=== PATIENT | female | born 1995 | race Caucasian/White ===

== ENCOUNTER 2022-08-15 13:21 | Outpatient (CLI) | payer OTHER, SELFPAY ==
[2022-08-15 16:48] LABS: Albumin* 4.8 g/dL (3.3-5.0); Chloride* 108 mmol/L (96-114)
[2022-08-15 16:49] LABS: Potassium* 4.9 mmol/L (3.6-5.1); Sodium* 142 mmol/L (135-149)
[2022-08-15 16:51] LABS: Alkaline Phosphatase* 70 U/L (40-150); Aspartate Amino Transferase* 28 U/L (12-35); Bilirubin Total* 0.3 mg/dL (0.1-1.5); Blood Urea Nitrogen* 22 mg/dL (5-24); Carbon Dioxide* 27 mmol/L (20-32); Creatinine* 1.1 mg/dL (0.5-1.5); Estimated Glomerular Filt Rate 72 ml/min
[2022-08-15 16:52] LABS: Alanine Aminotransferase* 24 U/L (4-35); Calcium* 9.5 mg/dL (8.4-10.6); Glucose* 79 mg/dL (60-115)
== END 2022-08-15 13:22 | disposition home or self-care (01) ==
PROVIDERS: PCP Physician Assistant Medical; Visit Provider Physician Assistant Medical
DX: R61 Generalized hyperhidrosis (principal); F41.9 Anxiety disorder, unspecified
CPT/HCPCS: 80053; 84443

== ENCOUNTER 2022-12-06 16:15 | Outpatient (CLI) | payer OTHER, SELFPAY ==
[2022-12-06 23:03] LABS: Chlamydia DNA Amplified* NOT DETECTED (No Detected); GC DNA Amplified* NOT DETECTED (No Detected)
== END 2022-12-06 16:16 | disposition home or self-care (01) ==
PROVIDERS: PCP Physician Assistant Medical; Visit Provider Registered Nurse
DX: Z01.419 Encounter for gynecological examination (general) (routine) without abnormal findings (principal); Z11.3 Encounter for screening for infections with a predominantly sexual mode of transmission; Z13.6 Encounter for screening for cardiovascular disorders; Z13.21 Encounter for screening for nutritional disorder; F32.A Depression, unspecified; F41.9 Anxiety disorder, unspecified
CPT/HCPCS: 0353U; 80061; 82306; 87491; 87591

== ENCOUNTER 2023-07-11 14:08 | Outpatient (CLI) | payer OTHER, SELFPAY ==
[2023-07-11 22:42] LABS: Chlamydia DNA Amplified* NOT DETECTED (No Detected); GC DNA Amplified* NOT DETECTED (No Detected)
== END 2023-07-11 14:09 | disposition home or self-care (01) ==
PROVIDERS: PCP Physician Assistant Medical; Visit Provider Physician Assistant Medical
DX: Z11.3 Encounter for screening for infections with a predominantly sexual mode of transmission (principal)
CPT/HCPCS: 86592; 86703; 86706; 86803; 87340; 87491; 87591

== ENCOUNTER 2023-10-07 10:08 | Outpatient (CLI) | payer OTHER, SELFPAY ==
--- OUTSIDE RECORDS SUMMARY | 2023-10-07 10:11 | XMS_ITS | Clinical Summary ---
Author Name Unknown Organization [facility] Address [place], [place] [address] Care Team Providers Care High Voltage Electrician Name Role Phone Clinic, No Pcp Or Primary Care Provider Unavaila ble Allergies No known active allergies Medications Medication Sig Dispensed Refills Start Date End Date Status clindamycin 1% (CLEOCIN-T) 1 % gel APPLY TO FACE EVERY MORNING 0 03/12/2020 Active valACYclovir (VALTREX) 1 gram tablet 0 12/30/2020 Active cyclobenzaprine (FLEXERIL) 5 mg tabletIndications:Str ain of lumbar region, initial encounter Take 1 Tablet (5 mg) by mouth 3 times daily if needed for Muscle Spasm. 21 Tablet 0 08/30/2023 Active naproxen (NAPROSYN) 500 mg tabletIndications:Acu te right-sided low back pain without sciatica Take 1 Tablet (500 mg) by mouth every 12 hours if needed for Pain. 20 Tablet 0 09/05/2023 Active Active Problems Problem Noted Date Diagnosed Date CONSTIPATION 10/23/2000 FEVER 10/01/2000 Encounters Date Type Department Care Team Description 09/05/2023 3:40 PM LAUNCH STEWARD Office [facility] [address] [place] [address] Kamryn Cullen, Occ Med (08/29/23 low back- gotten better) 09/05/2023 Travel 08/30/2023 12:35 PM LAUNCH STEWARD Office Visit [facility] [address] [place] [address] Dorie Metzger, FORTINO Occ Med (Low back pain mostly on right side. With certain movements feels pulling on left side. Occurred 08/29/23 when lifting product at work. Employer [employer]) 08/30/2023 Travel from Last 3 Months Immunizations Name Administration Dates Next Due DTP 04/20/2003,1997,1997 ,1997 DTaP 04/20/2003,05/20/1998,1997 HIB HbOC (HibTITER) 1997,1997,1996 HIB PRP-OMP (PedvaxHIB) 1997,1997, Hepatitis A (Peds) 05/19/2014 Hepatitis B (Peds) 1997,1997, 997 Hepatitis B, Unspecified 1997,1997,1 Human Papilloma Virus Vaccine 10/16/2013, 013,04/28/2010 Inactivated Polio Vaccine 04/20/2003,1997, 1997 Influenza, IIV3 (Age 6-35 mos) 11/04/2006 MMR 01/28/2008,04/20/2003,05/20/1998 Meningococcal Vaccine (Menactra) 05/04/2011 Oral Polio Vaccine 1997,1997, 997 Tdap 09/04/2019,04/28/2010 Varicella Vaccine 04/28/2010,01/28/2008,11/16/18 99 Family History Medical History Relation Name Comments Genetic Other Healthy Relation Name Status Comments Other Social History Tobacco Use Types Packs/Day Years Used Date Smoking Tobacco: Former Cigarettes Smokeless Tobacco: Never Tobacco Cessation:Counseling Given: Not Answered PHQ-2 Answer Date Recorded PHQ-2 TOTAL SCORE 1 01/30/2021 Social Connections Answer Date Recorded Frequency of Communication with Friends and Fami ly Not on file 09/05/2023 Financial Resource Strain Answer Date R ecorded Difficulty of Paying Living Expenses Not on file 08/26/2021 Difficulty of Paying Living Expenses Not on file 08/26/2021 Sex and Gender Information Value Date Recorded Sex Assigned at Not on file Gender Identity Not on file Sexual Orientation Not on file Obstetrics History Last Filed Vital Signs Vital Sign Reading Time Taken Comments Blood Pressure 110/75 09/05/2023 3:53 PM LAUNCH STEWARD Pulse 77 09/05/2023 3:53 PM LAUNCH STEWARD Temperature 36.7 ??C (98.1 ??F) 08/30/2023 1:32 PM CS T Respiratory Rate 14 08/30/2023 1:32 PM LAUNCH STEWARD Oxygen Saturation 100% 09/05/2023 3:53 PM LAUNCH STEWARD Inhaled Oxygen Concentration - - Weight 68.5 kg (151 lb) 09/05/2023 3:53 PM LAUNCH STEWARD Height 170.2 cm (5' 7) 04/26/2021 2:05 PM CDT Body Mass Index 23.65 04/26/2021 2:05 PM CDT Plan of Treatment Health Maintenance Due Date Last Done Comments HIV for age 15-65 2012 Hepatitis C screening for ag e 18-79 2015 Depression screening for age 12+ 01/30/2022 01/30/2021 BMI (ht and wt on same day) for age 18+ 04/26/2022 04/26/2021, 01/30/2021, 02/03/2019 COVID-19 vaccine series (2022- season) 2023 10/18/2021, 09/27/2021 Influenza for age 9-49 04/26/2023 Pap test for age 21-65 12/09/2023 , 12/09/2018, 12/09/2018 Tetanus booster 09/04/2029 09/04/2019, 04/28/2010 HPV series for age 9-26 Completed 10/16/19 14, 03/06/2013, 04/28/2010 Tdap Completed 09/04/2019, 04/28/2010 Pneumococcal series for age 6-64 Aged Out No longer eligible b ased on patient's age to complete this topic Care Teams High Voltage Electrician Relationship Specialty Start Date End Date Clinic, No Pcp Or . PCP - General 09/04/19
--- OUTSIDE RECORDS SUMMARY | 2023-10-07 10:11 | XMS_ITS | Clinical Summary ---
Author Name Unknown Organization [facility] Address [address] [place] [address] Care Team Providers Care Medicinal Plant Picker Name Role Phone Blanca Hendricks MD Primary Care Provider [phone] Source Comments You are receiving this document as you are listed as the primary care provider,follow-up provider, or the patient has been referred to you for consultation.This is in compliance with the Medicare and[facility] EHR Incentive Program,which states Providers who transition their patient to another setting of careor provider of care or refers their patient to another provider of care shouldprovide summary care record for each transition of care or referral. [facility] Allergies No known active allergies Medications Medication Sig Dispensed Refills Start Date End Date Status buPROPion (WELLBUTRIN) 100 MG tablet Take 100 mg by mouth two times a day. 0 Active cyclobenzaprine (FLEXERIL) 10 MG tablet Take 1 Tab by mouth two times daily as needed for Muscle Spasms. 20 Tab 0 07/22/2017 Active Active Problems No known active problems Immunizations Name Administration Dates Next Due DTP 04/20/2003,1997,1997 ,1997 Flu Vac Preserv Free (3+yrs) 11/04/2006 HepB Ped/Adol (0-18 yrs) 1997,1997,1 Hib (HbOC) 1997,1997,1997 IPV (Polio) 04/20/2003 MMR 01/28/2008,04/20/2003 OPV, Trivalent (Orimune or tOPV) 1997,08/27,1997 Varicella 01/28/2008 Family History Medical History Relation Name Comments Hyperlipidemia Maternal Grandfather Depression Maternal Grandmother Thyroid Disorder Maternal Grandmother Depression Paternal Grandmother Thyroid Disorder Paternal Grandmother Relation Name Status Comments Maternal Grandfather Maternal Grandmother Paternal Grandmother Social History Tobacco Use Types Packs/Day Years Used Date Smoking Tobacco: Every Day Cigarettes Smokeless Tobacco: Never Comments:grandfather smokes, outside Alcohol Use Standard Drinks/Week Comments Not Asked 0 (1 standard drink = 0.6 oz pur e alcohol) Sex and Gender Information Value Date Recorded Sex Assigned at Not on file Gender Identity Not on file Sexual Orientation Not on file Last Filed Vital Signs Vital Sign Reading Time Taken Comments Blood Pressure 115/69 07/22/2017 11:37 AM POTATO SEED CUTTER Pulse 92 07/22/2017 11:37 AM POTATO SEED CUTTER Temperature 37 ??C (98.6 ??F) 07/22/2017 11:37 AM POTATO SEED CUTTER Respiratory Rate 20 07/22/2017 11:37 AM POTATO SEED CUTTER Oxygen Saturation 97% 11/09/2010 9:44 PM CDT Inhaled Oxygen Concentration - - Weight 71.7 kg (158 lb) 11/09/2010 9:44 PM CDT Height 157.5 cm (5' 2) 01/28/2008 9:38 AM CDT Body Mass Index - - Plan of Treatment Health Maintenance Due Date Last Done Comments Cervical Cancer Screening Due 1997 Hep C Screening (Preventive Services) 1997 COVID-19 Vaccine (#1) 1997 Varicella (2 of 2 - 2-dose childhood series) 04/21/2008 01/28/2008 DTaP/Tdap/Td (5 - Tdap) 2008 04/20/20 03, 1997, 1997, Additional history exists HPV Vaccine (1 - 2-dose series) 2008 HIV Screening (Preventive Services) 2013 Adult Preventive Visit 2015 8, 11/04/2006, 06/11/2005 Influenza (#1) 2023 11/04/2006 Zoster/Shingles (1 of 2) 2047 HepB Completed 1997, 06/27, 1997 Hib Aged Out 1997, 08/27, 1997 No longer eligible based on patient's age to complete this topic IPV (Polio) Completed 04/20/2003, 10/25, 1997, Additional history exists HepA Aged Out No longer eligi ble based on patient's age to complete this topic MCV4 Aged Out No longer eligi ble based on patient's age to complete this topic Pneumococcal Aged Out No longer eligi ble based on patient's age to complete this topic Care Teams Medicinal Plant Picker Relationship Specialty Start [place] [address] [place], [place] [phone] PCP - General 02/22/06
--- OUTSIDE RECORDS SUMMARY | 2023-10-07 10:11 | XMS_ITS | Clinical Summary ---
Author Name Unknown Organization [place] [facility] Address [address] [place] [address] Care Team Providers Care Store Assistant Name Role Phone Clinic, Araceli Huang Primary Care Provider Allergies No known active allergies Medications Medication Sig Dispensed Refills Start Date End Date Status doxycycline monohydrate (MONODOX) 100 MG capsuleIndications:A cne vulgaris Take one by mouth in the am and one by mouth in the pm for 3 months 180 capsule 0 09/26/2018 Active amoxicillin (AMOXIL) 500 MG capsuleIndications:A cne vulgaris TAKE ONE CAPSULE BID PO 60 capsule 2 10/15/2018 Active Social History Tobacco Use Types Packs/Day Years Used Date Smoking Tobacco: Never Smokeless Tobacco: Never Sex and Gender Information Value Date Recorded Sex Assigned at Not on file Gender Identity Not on file Sexual Orientation Not on file Last Filed Vital Signs Vital Sign Reading Time Taken Comments Blood Pressure 118/68 08/19/2011 5:29 AM ANIMAL SCIENCE INSTRUCTOR Pulse - - Temperature 36.7 ??C (98 ??F) 08/19/2011 1:53 AM ANIMAL SCIENCE INSTRUCTOR Respiratory Rate 20 08/19/2011 5:29 AM ANIMAL SCIENCE INSTRUCTOR Oxygen Saturation 99% 08/19/2011 5:29 AM ANIMAL SCIENCE INSTRUCTOR Inhaled Oxygen Concentration - - Weight 71.9 kg (158 lb 8.2 oz) 08/19/2011 1:53 A M ANIMAL SCIENCE INSTRUCTOR Height - - Body Mass Index - - Plan of Treatment Not on file Care Teams Store Assistant Relationship Specialty Start Date End Date Clinic, [facility] [address] [place] [address] PCP - General 08/19/11
--- OUTSIDE RECORDS SUMMARY | 2023-10-07 10:11 | XMS_ITS | Referral Summary ---
Author Name Unknown Organization [facility] Address [address] [place] [address] Care Team Providers Care Lead Esthetician Name Role Phone Clinic, Araceli Huang Primary [...] Comments Blood Pressure 118/68 08/19/2011 5:29 AM BANK ADVISOR Pulse - - Temperature 36.7 ??C (98 ??F) 08/19/2011 1:53 AM BANK ADVISOR Respiratory Rate 20 08/19/2011 5:29 AM BANK ADVISOR Oxygen Saturation 99% 08/19/2011 5:29 AM BANK ADVISOR Inhaled Oxygen Concentration - - Weight 71.9 kg (158 lb 8.2 oz) 08/19/2011 1:53 A M BANK ADVISOR Height - - Body Mass Index - - Plan of Treatment Not on file Care Teams Lead Esthetician Relationship Specialty Start Date End Date Clinic, [facility] [address] [place] [address] PCP - General 08/19/11
== END 2023-10-07 10:09 | disposition home or self-care (01) ==
PROVIDERS: PCP Family Medicine; Visit Provider Family Medicine
DX: Z00.00 Encounter for general adult medical examination without abnormal findings (principal); R53.83 Other fatigue
CPT/HCPCS: 80048; 84443; 85025

== ENCOUNTER 2023-12-27 11:00 | Outpatient (CLI) | payer OTHER, SELFPAY ==
--- OUTSIDE RECORDS SUMMARY | 2023-12-27 11:03 | XMS_ITS | Referral Summary ---
Author Name Unknown Organization [facility] [place] Address [address] [place] [address] Care Team Providers Care Lamp Replacer Name Role Phone Clinic, Araceli Huang Primary Care Provider Allergies No known active allergies Medications Medication Sig Dispensed Refills Start Date End Date Status doxycycline monohydrate (MONODOX) 100 MG capsuleIndications:A cne vulgaris Take one by mouth in the am and one by mouth in the pm for 3 months 180 capsule 09/26/2018 Active amoxicillin (AMOXIL) 500 MG capsuleIndications:A [...] Comments Blood Pressure 118/68 08/19/2011 5:29 AM SYSTEM SUPPORT ADMINISTRATOR Pulse - - Temperature 36.7 ??C (98 ??F) 08/19/2011 1:53 AM SYSTEM SUPPORT ADMINISTRATOR Respiratory Rate 20 08/19/2011 5:29 AM SYSTEM SUPPORT ADMINISTRATOR Oxygen Saturation 99% 08/19/2011 5:29 AM SYSTEM SUPPORT ADMINISTRATOR Inhaled Oxygen Concentration - - Weight 71.9 kg (158 lb 8.2 oz) 08/19/2011 1:53 A M SYSTEM SUPPORT ADMINISTRATOR Height - - Body Mass Index - - Plan of Treatment Not on file Care Teams Lamp Replacer Relationship Specialty Start Date End Date Clinic, [facility] [address] [place] [address] PCP - General 08/19/11
--- OUTSIDE RECORDS SUMMARY | 2023-12-27 11:03 | XMS_ITS | Clinical Summary ---
Author Name Unknown Organization [facility] Address [address] [place] [address] Care Team Providers Care Deployment Manager Name Role Phone Clinic, Araceli Huang Primary [...] Comments Blood Pressure 118/68 08/19/2011 5:29 AM PORTFOLIO ARCHITECT Pulse - - Temperature 36.7 ??C (98 ??F) 08/19/2011 1:53 AM PORTFOLIO ARCHITECT Respiratory Rate 20 08/19/2011 5:29 AM PORTFOLIO ARCHITECT Oxygen Saturation 99% 08/19/2011 5:29 AM PORTFOLIO ARCHITECT Inhaled Oxygen Concentration - - Weight 71.9 kg (158 lb 8.2 oz) 08/19/2011 1:53 A M PORTFOLIO ARCHITECT Height - - Body Mass Index - - Plan of Treatment Not on file Care Teams Deployment Manager Relationship Specialty Start Date End Date Clinic, [facility] [address] [place] [address] PCP - General 08/19/11
--- OUTSIDE RECORDS SUMMARY | 2023-12-27 11:03 | XMS_ITS | Clinical Summary ---
Author Name Unknown Organization [employer] [facility] Address [place], [place] [address] Care Team Providers Care Nuclear Technologist Name Role Phone Clinic, No Pcp Or Primary Care Provider Unavaila ble Allergies No known active allergies Medications Medication Sig Dispensed Refills Start Date End Date Status clindamycin 1% (CLEOCIN-T) 1 % gel APPLY TO FACE EVERY MORNING 03/12/2020 Active valACYclovir (VALTREX) 1 gram tablet 12/30/2020 Active cyclobenzaprine (FLEXERIL) 5 mg tabletIndications:Str ain of lumbar region, initial encounter Take 1 Tablet (5 mg) by mouth 3 times daily if needed for Muscle Spasm. 21 Tablet 08/30/2023 Active naproxen (NAPROSYN) 500 mg tabletIndications:Acu te right-sided low back pain without sciatica Take 1 Tablet (500 mg) by mouth every 12 hours if needed for Pain. 20 Tablet 09/05/2023 Active Active Problems Problem Noted Date Diagnosed Date CONSTIPATION 10/23/2000 FEVER 10/01/2000 Encounters Date Type Department Care Team Description 10/07/2023 Lab Requisition [facility] [phone] Sravan Alicia MD from Last 3 Months Immunizations Name Administration [...] Comments Blood Pressure 110/75 09/05/2023 3:53 PM YARN WASHER Pulse 77 09/05/2023 3:53 PM YARN WASHER Temperature 36.7 ??C (98.1 ??F) 08/30/2023 1:32 PM CS T Respiratory Rate 14 08/30/2023 1:32 PM YARN WASHER Oxygen Saturation 100% 09/05/2023 3:53 PM YARN WASHER Inhaled Oxygen Concentration - - Weight 68.5 kg (151 lb) 09/05/2023 3:53 PM YARN WASHER Height 170.2 cm (5' 7) 04/26/2021 2:05 PM CDT Body Mass Index 23.65 04/26/2021 2:05 PM CDT Plan of Treatment Health Maintenance Due Date Last Done Comments HIV for age 15-65 2012 Hepatitis C screening for age 18-79 2015 Depression screening for age 12+ 01/30/2022 01/30/2021 BMI (ht and wt on same day) for age 18+ 04/26/2022 04/26/2021, 01/30/2021, 02/03/2019 COVID-19 vaccine series (2022-24 season) 2023 10/18/2021, 09/27/2021 Influenza for age 9-49 04/26/2024 Pap test for age 21-65 10/07/2026 , 10/07/2023, 12/08/2020, Additional history exists Tetanus booster 09/04/2029 09/04/2019, 04/28/2010 HPV series for age 9-26 Completed 10/16/19 14, 03/06/2013, 04/28/2010 Tdap Completed 09/04/2019, 04/28/2010 Pneumococcal series for age 6-64 Aged Out No longer eligible based on patient's age to complete this topic Procedures Procedure Name Priority Date/Time Associated Diagnosis Comments LAB TRACKING EVENT Routine 10/07/2023 10 :15 AM YARN WASHER FLOWER STRIPPER THIN PREP PAP SCREEN IMAGED Routine 10/07/2023 10:15 AM YARN WASHER HPV THIN PREP Routine 10/07/2023 10:15 AM YARN WASHER from Last 3 Months Results * LAB TRACKING EVENT (10/07/2023 10:15 AM YARN WASHER) Other (Other) Client Collect / Unknown 10/07/2023 10:15 AM YARN WASHER 10/07/2023 10:12 PM YARN WASHER Sravan Alicia MD LAB BILL ONLY [facility] [address] [place] [address], * FLOWER STRIPPER THIN PREP PAP SCREEN IMAGED (10/07/2023 10:15 AM YARN WASHER) Case Report Gynecologic Cytology Report ? Case: [id number] ? Authorizing Provider: ??Sravan Alicia MD ??Collected: ? 10/07/2023 1015 ? Ordering Location: ? [facility] ?Received: ?10/08/2023 0846 ? First Screen: ?Candido Mena ? Specimen: ?FLOWER STRIPPER ThinPrep Vial Screening, Cervical ? 10/10/2023 6:19 PM [facility] INTERPRETATION/ RESULT NEGATIVE FOR INTRAEPITHELIAL LESION OR MALIGNANCY (NIL) (none) 10/10/2023 6:19 PM YARN WASHER [facility] IMEN ADEQUACY Satisfactory for evaluation Endocervical component present 10/10/2023 6:19 PM YARN WASHER [facility] HPV REQUEST HPV and PAP 10/10/2023 6:19 PM YARN WASHER [facility] Date of LMP 10/10/2023 6:19 PM YARN WASHER [facility] Comment:Depo Provera Last Pap Date 10/10/2023 6:19 PM YARN WASHER [facility] LABORATORY-C ENTRAL LABORATORY Comment:November 2020 Last Pap Result NIL 6:[address] [facility] [place] Bx Done Today No 10/10/2023 6:[address] [facility] Additional Information 10/10/2023 6:[address] [facility] Comment: Interpreted at [facility] - [address] [place] [address], [place] [address] Automated Review Successful 10/10/2023 6:19 PM [facility] Comment:Specimen processed s uccessfully by automated automotive instructor device, ThinPrep Imaging System, [employer] ANCILLARY TESTING FLOWER STRIPPER HPV Ordered, Please see separate report 10/10/2023 6:19 PM YARN WASHER [facility] Note The pap test is a screening technique, not a diagnostic procedure. It is used primarily to screen for squamous cancers and precursor lesions. Published studies have shown that it is subject to both false negative and false positive results. The pap test should not be used as the sole means to diagnose or exclude pre-malignant and malignant lesions. 10/10/2023 6:[address] [facility] Other (Cervical) 10/07/2023 10:15 AM YARN WASHER 10/08/2023 8:46 AM YARN WASHER Sravan Alicia MD PATHOLOGY/CYTOLO [facility] [address] [place] [address], * HPV HIGH RISK (10/07/2023 10:15 AM YARN WASHER) TYPE 16 Negative Negative 10/09/2023 2:25 PM YARN WASHER [facility] TRAL LABORATORY TYPE 18 Negative Negative 10/09/2023 2:25 PM YARN WASHER [facility] TRAL LABORATORY OTHER HIGH RISK TYPES Negative Negative 10/09/2023 2:25 PM YARN WASHER [facility] TRAL LABORATORY Other (Cervical) 10/07/2023 10:15 AM YARN WASHER 10/08/2023 8:46 AM YARN WASHER Narrative [facility] - 10/09/2023 2:25 PM YARN WASHER HPV types 16, 18, 31, 33, 35, 39, 45, 51, 52, 56, 58, 59, 66 and 68 DNA were undetectable or below the pre-set threshold. Methodology: [employer] 4800 HPV Test Sravan Alicia MD MICROBIOLOGY [facility] [address] [place] [address], from Last 3 Months Care Teams Nuclear Technologist Relationship Specialty Start Date End Date Clinic, No Pcp Or . PCP - General 09/04/19
--- OUTSIDE RECORDS SUMMARY | 2023-12-27 11:03 | XMS_ITS | Clinical Summary ---
Author Name Unknown Organization [facility] Address [address] [place] [address] Care Team Providers Care Solder Sprayer Name Role Phone Blanca Hendricks MD Primary Care Provider [phone] Source Comments You are receiving this document as you are listed as the primary care provider,follow-up provider, or the patient has been referred to you for consultation.This is in compliance with the Medicare and[facility] EHR Incentive Program,which states Providers who transition their patient to another setting of careor provider of care or refers their patient to another provider of care shouldprovide summary care record for each transition of care or referral. [facility] Allergies No known active allergies Medications Medication Sig Dispensed Refills Start Date End Date Status buPROPion (WELLBUTRIN) 100 MG tablet Take 100 mg by mouth two times a day. Active cyclobenzaprine (FLEXERIL) 10 MG tablet Take 1 Tab by mouth two times daily as needed for Muscle Spasms. 20 Tab 07/22/2017 Active Active Problems No known active [...] Comments Blood Pressure 115/69 07/22/2017 11:37 AM PAEDODONTIST Pulse 92 07/22/2017 11:37 AM PAEDODONTIST Temperature 37 ??C (98.6 ??F) 07/22/2017 11:37 AM PAEDODONTIST Respiratory Rate 20 07/22/2017 11:37 AM PAEDODONTIST Oxygen Saturation 97% 11/09/2010 9:44 PM CDT Inhaled Oxygen Concentration - - Weight 71.7 kg (158 lb) 11/09/2010 9:44 PM CDT Height 157.5 cm (5' 2) 01/28/2008 9:38 AM CDT Body Mass Index - - Plan of Treatment Health Maintenance Due Date Last Done Comments Cervical Cancer Screening Due 1997 Hep C Screening (Preventive Services) 1997 Varicella (2 of 2 - 2-dose childhood series) 04/21/2008 01/28/2008 DTaP/Tdap/Td (5 - Tdap) 2008 04/20/20 03, 1997, 1997, Additional history exists HPV Vaccine (1 - 3-dose series) 2012 HIV Screening (Preventive Services) 2013 Adult Preventive Visit 2015 8, 11/04/2006, 06/11/2005 COVID-19 Vaccine (2022- season) 2023 Influenza (#1) 2023 11/04/2006 Zoster/Shingles (1 of [...] age to complete this topic Care Teams Solder Sprayer Relationship Specialty Start [place] [address] [place], [place] [id number] PCP - General 02/22/06
--- NOTE | 2023-12-27 11:15 | US_ITS ---
Patient: BARBARA TREJO Facility:?[facility] Patient ID:?[id number] Site Patient ID:?[id number] Site :?1997 Study:?US-Breast Left Dr. Ibanez to read-12/27/2023 11:28:59 AM Ordering Physician:?Sven Galarza Final Report: LEFT BREAST ULTRASOUND CLINICAL HISTORY: LEFT breast nipple discharge. COMPARISON: None. TECHNIQUE: Real-time ultrasound imaging of LEFT breast with imaging documentation. FINDINGS: Targeted sonogram in the LEFT periareolar breast demonstrates normal fibroglandular tissue without singular duct ectasia or intraductal nodule. No fluid collection or mass. IMPRESSION: No suspicious findings. No evidence of papilloma. RECOMMENDATIONS: Clinical follow-up. Results and recommendations were discussed with the patient at the time of the exam. BI-RADS Category 2: Benign A lay language report of this examination will be provided to the patient. Dictated by Sravan Ibanez MD @ 12/27/2023 12:16:56 PM jj/Dictated by: Sravan Ibanez MD @ 12/27/2023 12:16:00 PM Signed by:?Sravan Ibanez MD @12/27/2023 2:49:58 PM (Electronic Signature)
== END 2023-12-27 11:01 | disposition home or self-care (01) ==
LOC: US 11:01
PROVIDERS: PCP Family Medicine; Visit Provider Specialist
DX: N64.52 Nipple discharge (principal)
CPT/HCPCS: 76642; 84146; 87070

== ENCOUNTER 2024-09-17 10:44 | Outpatient (CLI) | payer OTHER, SELFPAY | END 2024-09-17 10:45 | disposition home or self-care (01) | LOC: FBOREF 10:45 | PROVIDERS: PCP Family Medicine; Visit Provider Family Medicine | DX: Z13.228 Encounter for screening for other metabolic disorders (principal); Z13.0 Encounter for screening for diseases of the blood and blood-forming organs and certain disorders involving the immune mechanism | CPT/HCPCS: 80048; 85025 ==

== ENCOUNTER 2025-02-03 10:15 | Outpatient (CLI) | payer OTHER, SELFPAY | END 2025-02-03 10:16 | disposition home or self-care (01) | PROVIDERS: PCP Family Medicine; Visit Provider Family Medicine | DX: Z00.00 Encounter for general adult medical examination without abnormal findings (principal); F41.1 Generalized anxiety disorder; R53.83 Other fatigue; Z79.899 Other long term (current) drug therapy; Z13.0 Encounter for screening for diseases of the blood and blood-forming organs and certain disorders involving the immune mechanism | CPT/HCPCS: 82306; 82607; 82728; 84443; 85025 ==